=== PATIENT | female | born 1960 | race Caucasian/White ===

== ENCOUNTER 2017-01-08 20:05 | Emergency (ER) | payer OTHER ==
[~2017-01-08] VITALS: Ht 157.5 cm; Wt 72.5 kg
[2017-01-08 20:14] VITALS: Ht 157.5 cm; Wt 72.5 kg
--- NOTE | 2017-01-08 21:43 | ERD ---
ER Documentation Chief Complaint Date/Time DATE: 01/08/17 TIME: 21:41 Chief Complaint left leg redness, bilateral leg weakness HPI Patient is a 56-year-old female with no past medical history who presents to the ED with bilateral leg numbness, tingling and weakness 6 months. She states that her symptoms have been the same for the last 6 months. Patient states that the reason she came in today was that "she now has time" and her appointment with her primary care provider is in January. She states that she went to the [facility] 3 weeks ago however her symptoms started prior to this. She denies pain in her legs. She denies unilateral swelling or redness. Denies fever or chills. She denies chest pain or cough or shortness of breath. She denies headache or dizziness or syncopal episodes. ROS All systems reviewed and are negative except as per history of present illness. Medications Home Meds Active Scripts Acetaminophen* (Tylophen*) 500 Mg Capsule, 1 CAP PO Q6H Y for PAIN AND OR ELEVATED TEMP, #20 CAP Prov:BARBARA PABLO PA-C 01/08/17 Allergies Allergies: Coded Allergies: No Known Allergy (Unverified , 01/08/17) PMhx/Soc History of Surgery: No Anesthesia Reaction: No Hx Neurological Disorder: No Hx Respiratory Disorders: No Hx Cardiac Disorders: No Hx Psychiatric Problems: No Hx Miscellaneous Medical Probl: Yes (HIGH CHOLESTEROL) Hx Alcohol Use: No Hx Substance Use: No Hx Tobacco Use: No Smoking Status: Never smoker FmHx Family History: No coronary disease, No diabetes, No other Physical Exam Vitals Physical Exam GENERAL: Well-developed, well-nourished female. Appears in no acute distress. NECK: Supple. No lymphadenopathy or thyromegaly. No meningismus. negative kernig. negative brudinski. LUNG: Clear to auscultation bilaterally. No rhonchi, wheezing, rales or coarse breath sounds. HEART: Regular rate and rhythm. No murmurs, rubs or gallops. ABDOMEN: No scars, ecchymosis or rashes noted. Soft, nontender, and nondistended. Positive bowel sounds in all four quadrants. No rebound tenderness , no guarding. (-) McBurneys point tenderness. No CVA tenderness. BACK: No midline tenderness. Extremities: Equal pulses bilaterally. No peripheral clubbing, cyanosis. Mild bilateral edema with no erythema or warmth. No palpable cord. Negative Homans sign. NEUROLOGIC: Alert and oriented. Moving all four extremities. 5/5 strength in all extremities. Normal speech. Steady gait. SKIN: Normal color. Warm and dry. No rashes or lesions. Capillary refill < 2 seconds Procedures/MDM ER COURSE: I kept the patient and/or family informed of laboratory and diagnostic imaging results throughout the emergency room course. IMAGING STUDIES [place] [address] Radiology Main Line: [phone] DIAGNOSTIC IMAGING REPORT Patient: Brien ALLEN : 1960 Age: 56 Sex: F MR #: [id number] DOS: 01/08/17 2133 Ordering MD: BARBARA PABLO PA-C Location: FTE Room/Bed: PROCEDURE: US Lower extremity Venous. CLINICAL INDICATION: BILATERAL LEG PAIN, NUMBNESS TECHNIQUE: Multiple sonographic images of the bilateral lower extremity deep venous system was obtained utilizing grayscale, color-flow, compressive sonography and doppler imaging with augmentation. The images were reviewed on a PACS workstation. COMPARISON: None. FINDINGS: There is normal compressibility and flow within the bilateral common femoral, deep femoral, superficial femoral and popliteal veins. The deep veins the calf were incompletely visualized. IMPRESSION: No sonographic evidence for deep venous thrombosis in the bilateral lower extremities. Physician Mario Date Time Electronically viewed and signed by Physician Mario on 01/08/2017 22 :08 ML/ CC: BARBARA PABLO PA-C MEDICAL DECISION MAKING: This is a 56-year-old who presents with 6 months of chronic bilateral leg numbness and tingling and weakness. Vital signs were reviewed. Patient is afebrile. Patient is not hypoxic. Patient is nontoxic or ill-appearing. I consulted with my supervising physician Dr. MARTIN agreed with my medical decision making and discharge plan. Ultrasound as of by radiologist was unremarkable for deep venous thrombosis. Low suspicion for dislocation, fracture, septic joint, compartment syndrome, osteomyelitis, avascular necrosis , DVT, Achilles tendon rupture, cellulitis. At this time, unable to rule out any tendon and ligament injuries. Patient's symptoms have been going on for 6 months unchanged and I have low suspicion for emergent condition. DISCHARGE: At this time, patient is stable for discharge and outpatient management with no new complaints during the ER course. Patient was sent home with instructions to follow-up with primary care provider for further evaluation and a copy of imaging studies. Patient will be discharged home with instructions to recheck for new or worsening symptoms such as fever, nausea, weakness, LOC and to follow up with primary care in the next 1-2 days. Patient was advised to return to the ER for any new or worsening symptoms. Plan was discussed and patient and/ or family understands and agrees. Home instructions were given. Departure Diagnosis: Primary Impression: Bilateral leg pain Condition: Stable BARBARA PABLO PA-C Jan 08, 2017 21:43 Diagnosis: Primary Impression: Bilateral leg pain Condition: Stable BARBARA PABLO PA-C Jan 08, 2017 21:43
--- NOTE | 2017-01-08 22:08 | RADRPT ---
PROCEDURE: US Lower extremity Venous. CLINICAL INDICATION: BILATERAL LEG PAIN, NUMBNESS TECHNIQUE: Multiple sonographic images of the bilateral lower extremity deep venous system was obt ained utilizing grayscale, color-flow, compressive sonography and doppler imaging with augmentation. The images were reviewed on a PACS workstation. COMPARISON: None. FINDINGS: There is normal compressibility and flow within the bilateral common femoral, deep femoral, superfic ial femoral and popliteal veins. The deep veins the calf were incompletely visualized. IMPRESSION: No sonographic evidence for deep venous thrombosis in the bilateral lower extremities. Physician Mario Date Time Electronically viewed and signed by Physician Mario on 01/08/2017 22:08 ML/
[2017-01-08] MEDS ORDERED: ACET500C5 PO (22:34)
== END 2017-01-08 22:46 | disposition home or self-care (01) ==
LOC: FTE 20:05
DX: M79.605 Pain in left leg (principal); M79.604 Pain in right leg
CPT/HCPCS: 93970

== ENCOUNTER 2017-06-06 19:58 | Emergency (ER) | payer OTHER ==
[~2017-06-06] VITALS: Ht 157.5 cm; Wt 71.4 kg
[~2017-06-06 19:58] MED LIST: ACET500C5 PO
[2017-06-06 20:30] VITALS: BP 142/83; PULSE 95; RESP 17; TEMP 97.9; Ht 157.5 cm; Wt 71.4 kg
[2017-06-06 21:15] LABS: BASOPHIL # 0.1 10^3/ul (0.0-0.1); BASOPHILS % 0.8 % (0.0-2.0); EOSINOPHILS # 0.5 10^3/ul (0.0-0.5); EOSINOPHILS % 5.9 % (0.0-7.0); HEMOGLOBIN 13.4 g/dl (12.0-16.0); LYMPHOCYTES # 2.6 10^3/ul (0.8-2.9); LYMPHOCYTES % 28.2 % (15.0-51.0); MEAN CORPUSCULAR HGB CONC 32.7 g/dl (32.0-37.0); MEAN CORPUSCULAR VOLUME 91.9 fl (82.0-101.0); MEAN PLATELET VOLUME 9.6 fl (7.4-10.4); MONOCYTE # 0.5 10^3/ul (0.3-0.9); NEUTROPHIL # 5.5 10^3/ul (1.6-7.5); NEUTROPHILS % 59.8 % (39.0-77.0); PLATELET COUNT 304 10^3/UL (140-415); RED BLOOD COUNT 4.46 10^6/ul (4.20-5.40); RED CELL DISTRIBUTION WIDTH 12.5 % (11.5-14.5); WHITE BLOOD COUNT 9.2 10^3/ul (4.8-10.8)
[2017-06-06 21:36] LABS: BLOOD UREA NITROGEN 15 mg/dl (7-20); CALCIUM 9.2 mg/dl (8.4-10.2); GLUCOSE 109 mg/dl (70-220); SODIUM 142 mmol/L (135-144)
[2017-06-06 21:49] LABS: TROPONIN-I < 0.012 ng/ml (0.00-0.12)
[2017-06-06 21:51] LABS: ANION GAP 11 (8-16)
[2017-06-06 21:53] LABS: CARBON DIOXIDE 30 mmol/L (21-31); CHLORIDE 105 mmol/L (97-110)
[2017-06-06 22:06] LABS: CREATININE 0.75 mg/dl (0.44-1.00)
--- NOTE | 2017-06-06 22:11 | RADRPT ---
PROCEDURE: Noncontrast CT Head. CLINICAL INDICATION: Syncope. TECHNIQUE: Noncontrast CT of the head was obtained. The administered radiation dose was CTDI vol = 45 mGy, DLP = 720 mGy-cm. One or more of the following dose reduction techniques were used: automate d exposure control, adjustment of the mA and/or kV according to patient size and/or use of iterative reconstruction technique. DICOM images are available. COMPARISON: No pertinent prior examinations were submitted for comparison. FINDINGS: The ventricles and sulci are within normal limits. There is no acute intracranial hemorrhage or ext ra-axial fluid collection. There is no mass effect. No midline shift is identified. There is no loss of foster-white differentiation to suggest acute infarction. The orbits are within normal limits. The paranasal sinuses and mastoid air cells are without fluid. No destructive osseous lesion is identified. IMPRESSION: No acute findings. RPTAT: HIKT .Jamey Chao MD, MD Date Time Electronically viewed and signed by .Jamey Chao MD, MD on 06/06/2017 22:11 .T/
--- NOTE | 2017-06-06 22:12 | RADRPT ---
PROCEDURE: CHEST - 1 VIEW CLINICAL INDICATION: 57-year-old female with chest pain and syncope. TECHNIQUE: A single frontal AP portable view of the chest was performed. The images were reviewed on a PACS workstation. COMPARISON: None. FINDINGS: The cardiomediastinal silhouette has a normal appearance. There is no evidence for an infiltrate. There is no evidence for congestive heart failure. There is no evidence for pneumothorax. The osseou s structures are intact. IMPRESSION: No evidence for active cardiopulmonary disease. .Mack Zapata MD, MD Date Time Electronically viewed and signed by .Mack Zapata MD, on 06/06/2017 22:12 .M/
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
== END 2017-06-06 23:33 | disposition home or self-care (01) ==
LOC: E/R 19:58
DX: R42 Dizziness and giddiness (principal); J45.909 Unspecified asthma, uncomplicated
CPT/HCPCS: 36415; 70450; 71010; 80048; 82962; 84484; 85025; 93005